=== PATIENT | male | born 1985 | race Caucasian/White ===

== ENCOUNTER 2017-08-06 17:36 | Emergency (ER) | payer OTHER, MEDICAID ==
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
[2017-08-06 20:44] VITALS: BP 128/76; PULSE 77; RESP 15; TEMP 98.8; O2SAT 92
== END 2017-08-06 20:44 | disposition home or self-care (01) ==
DX: S62.637A Displaced fracture of distal phalanx of left little finger, initial encounter for closed fracture (principal); X58.XXXA Exposure to other specified factors, initial encounter; F17.200 Nicotine dependence, unspecified, uncomplicated
CPT/HCPCS: 73140; 99283; L3925